=== PATIENT | female | born 1980 | race American Indian/Alaskan Native ===

== ENCOUNTER 2017-11-21 13:17 | Inpatient (IN) | payer OTHER ==
[2017-11-21] MEDS ORDERED: ZOFRAN IV ONE (15:28)
[2017-11-21] MEDS ORDERED: TORADOL IV ONE (15:28)
[2017-11-21] MEDS ORDERED: NACL 0.9% 1000 ML 1,000 ML IV ONE (15:28)
--- NOTE | 2017-11-21 15:44 | Emergency Department Report ---
Blank Doc - Documentation Documentation: Patient is a 37-year-old [place] female past medical history of diabetes who is presenting with cough cold congestion and sore throat fever body aches nausea vomiting and one episode of diarrhea starting today. Patient states symptoms started 3 days ago. Patient also states she has shortness of breath on exertion and weakness she does have a history of heavy menses and is on the last day of her menses currently and has had 3 blood transfusions in her life. Patient states she is unable to keep anything down we'll start IV IV fluids and nausea medicine and medicine for body aches. We'll check labs to ensure that she doesn't have Y abnormalities or severe anemia requiring transfusion.
--- NOTE | 2017-11-21 15:55 | Emergency Department Report ---
- General Chief Complaint: Upper Respiratory Infection Stated Complaint: DANG,CONGESTION Time Seen by Provider: 11/21/17 15:21 Source: patient Mode of arrival: Ambulatory Limitations: No Limitations - History of Present Illness Initial Comments: Patient is a 46-year-old black female who is having some right-sided flank pain. Patient states it started yesterday originally she was having bilateral discomfort but costovertebral on the right. Patient also has some nausea as well as some vaginal spotting that she states is not having enough to wear a pad. This could be hematuria as well. Patient will have laboratory studies urinalysis and a CT rule out stone ordered MD Complaint: fever, cough, sore throat, rhinorrhea, nasal congestion, sinus pain Onset/Timin -: week(s) Severity: moderate Severity scale (0 -10): 4 Quality: sharp, aching Consistency: intermittent Improves With: nothing Worsens With: activity Context: sick contacts Associated Symptoms: fever, chills, myalgias, rhinorrhea, nasal congestion, sore throat, cough, shortness of breath, nausea, vomiting, diarrhea. denies: confusion Treatments Prior to Arrival: none - Related Data Allergies Allergy/AdvReac Type Severity Reaction Status Date / Time meperidine [From Demerol] Allergy Anaphylaxis Verified 11/21/17 13:21 levofloxacin [From Levaquin] AdvReac Vomiting Verified 11/21/17 13:21 piperacillin [From Zosyn] AdvReac Vomiting Verified 11/21/17 13:21 tazobactam [From Zosyn] AdvReac Vomiting Verified 11/21/17 13:21 ED Review of Systems ROS: Stated complaint: DANG,CONGESTION Other details as noted in HPI Constitutional: chills, fever, malaise Eyes: denies: eye pain, eye discharge, vision change ENT: ear pain, throat pain, congestion Respiratory: shortness of breath. denies: cough, wheezing Cardiovascular: denies: chest pain, palpitations, paroxysmal nocturnal dyspnea Endocrine: no symptoms reported Gastrointestinal: nausea, vomiting, diarrhea. denies: abdominal pain Genitourinary: denies: urgency, dysuria, discharge Musculoskeletal: denies: back pain, joint swelling, arthralgia Skin: denies: rash, lesions Neurological: denies: headache, weakness, numbness, paresthesias, confusion, abnormal gait, vertigo Psychiatric: denies: anxiety, depression Hematological/Lymphatic: denies: easy bleeding, easy bruising ED Past Medical Hx - Past Medical History Hx Hypertension: Yes Hx Diabetes: Yes - Surgical History Hx Appendectomy: Yes Additional Surgical History: Fibroids removed - Social History Smoking Status: Never Smoker Substance Use Type: Alcohol ED Physical Exam - General Limitations: No Limitations General appearance: alert, in no apparent distress - Head Head exam: Present: atraumatic, normocephalic - Eye Eye exam: Present: normal appearance, PERRL, EOMI Pupils: Present: normal accommodation - ENT ENT exam: Present: mucous membranes moist, TM's normal bilaterally - Expanded ENT Exam Expanded Throat exam: Positive: tonsillar erythema, tonsillomegaly. Negative: tonsillar exudate, R peritonsillar mass, L peritonsillar mass - Neck Neck exam: Present: normal inspection, full ROM. Absent: tenderness, meningismus, lymphadenopathy, thyromegaly - Respiratory Respiratory exam: Present: normal lung sounds bilaterally, chest wall tenderness (right lateral chest wall tenderness ), decreased breath sounds (RLL ). Absent: respiratory distress, wheezes, rhonchi, stridor - Cardiovascular Cardiovascular Exam: Present: regular rate, normal rhythm, normal heart sounds. Absent: systolic murmur, diastolic murmur, rubs, gallop - GI/Abdominal GI/Abdominal exam: Present: soft, normal bowel sounds. Absent: distended, tenderness, guarding, rebound, rigid, organomegaly, mass, bruit, pulsatile mass , hernia - Rectal Rectal exam: Present: deferred - Extremities Exam Extremities exam: Present: normal inspection, full ROM, normal capillary refill , pedal edema. Absent: tenderness, joint swelling, calf tenderness - Back Exam Back exam: Present: normal inspection, full ROM. Absent: tenderness, CVA tenderness (R), CVA tenderness (L), muscle spasm, paraspinal tenderness, vertebral tenderness - Neurological Exam Neurological exam: Present: alert, oriented X3, CN II-XII intact, normal gait, reflexes normal - Psychiatric Psychiatric exam: Present: normal affect, normal mood - Skin Skin exam: Present: warm, dry, intact, normal color. Absent: rash ED Course Vital Signs 11/21/17 13:21 Temperature 97.5 F L Pulse Rate 103 H Respiratory 20 Rate Blood Pressure 112/54 O2 Sat by Pulse 96 Oximetry ED Medical Decision Making - Lab Data Result diagrams: 11/21/17 16:03 11/21/17 16:03 - Radiology Data Radiology results: report reviewed, image reviewed 5 EM posterior basal opacity seen on lateral aspecdt , consistent with Lower Lob infiltrate/consolidation - Medical Decision Making Patient is a 46-year-old black female who is having some right-sided flank pain. Patient states it started yesterday originally she was having bilateral discomfort but costovertebral on the right. Patient also has some nausea as well as some vaginal spotting that she states is not having enough to wear a pad. This could be hematuria as well. Patient will have laboratory studies urinalysis and a CT rule out stone ordered, exam pt appears ill , work of breathing noted, lungs decreased lung sounds RLL, right lateral chest wall tenderness to palpation, o2 sat 92 room, 86% with ambulation. cbc, ua, hcg: noted, cxr: RLL CAP, plan: admit to hospital , NS 1 liter bolus, 150 cc hr, admit to medicine dx CAP, called hospitalist Dr. Rajput recommendation VQ scan , admit to medicine Dx, CAP, RLL Pneumonia, SOB, discussed with patient, patient verbalized agreement and understanding of same, pt hand off report given to Gaurang Rajput at this time. Critical care attestation.: If time is entered above; I have spent that time in minutes in the direct care of this critically ill patient, excluding procedure time. ED Disposition Clinical Impression: SOB (shortness of breath) CAP (community acquired pneumonia) Qualifiers: Laterality: right Lung location: lower lobe of lung Qualified Code(s): J18.1 - Lobar pneumonia, unspecified organism Disposition: OP ADMIT IP TO THIS HOSP Is pt being admited?: Yes Does the pt Need Aspirin: No Condition: Stable Instructions: Bacterial Pneumonia (ED) Referrals: PRIMARY CARE, [Primary Care Provider] - 3-5 Days Time of Disposition: 18:12
[2017-11-21 16:18] LABS: Basophils # (Auto) 0.1 K/mm3 (0.0-0.1); Basophils % (Auto) 0.9 % (0.0-1.8); Eosinophils # (Auto) 0.1 K/mm3 (0.0-0.4); Eosinophils % (Auto) 0.9 % (0.0-4.3); Hematocrit 32.8 % (30.3-42.9); Hemoglobin 10.9 gm/dl (10.1-14.3); Lymphocytes # (Auto) 1.6 K/mm3 (1.2-5.4); Lymphocytes % (Auto) 19.2 % (13.4-35.0); Mean Corpuscular HGB Conc 33 % (30-34); Mean Corpuscular Hemoglobin 27 pg (28-32); Mean Corpuscular Volume 82 fl (79-97); Monocytes # (Auto) 0.8 K/mm3 (0.0-0.8); Monocytes % (Auto) 10.3 % (0.0-7.3); Platelet Count 304 K/mm3 (140-440); Red Blood Count 4.01 M/mm3 (3.65-5.03); Red Cell Distribution Width 14.7 % (13.2-15.2)
[2017-11-21 16:46] LABS: Calcium 9.6 mg/dL (8.4-10.2)
--- NOTE | 2017-11-21 17:09 | XRay Report ---
FINAL REPORT EXAM: XR CHEST ROUTINE 2V HISTORY: cough TECHNIQUE: Two views of the chest Comparison: None FINDINGS: Heart size upper limits normal. There is a left chemo port present. There is mild posterior basal lower lobe opacity seen on the lateral film only, laterality is uncertain. Left costophrenic angle is clipped on the frontal film. Imaged axial skeleton is unremarkable. IMPRESSION: Approximately 5 centimeter posterior basal opacity seen on the lateral projection only, laterality is uncertain. Finding is compatible with lower lobe infiltrate/consolidation. Chemoport. Left costophrenic angle is clipped on the frontal exam.
[2017-11-21] MEDS ORDERED: ROCEPHIN/NS 1 GM/50 ML 1 GM/50 ML BAG IV ONE (17:49)
[2017-11-21] MEDS ORDERED: PROVENTIL IH ONE (17:50)
[2017-11-21 18:38] LABS: INR 0.8 (0.87-1.13)
[2017-11-21 18:39] LABS: Partial Thromboplastin Time 20.2 Sec. (24.2-36.6)
[2017-11-21] MEDS ORDERED: cefTRIAXone 1 GM in NACL 0.9% 20 ML IV ONE (19:00)
--- NOTE | 2017-11-21 20:20 | Nuclear Medicine Report ---
FINAL REPORT PROCEDURE: NM LUNG SCAN PERF/VENT TECHNIQUE: Five mCi Tc-99m MAA was injected IV for pulmonary perfusion imaging in multiple projections. 15 millicurie xenon 133 was inhaled for pulmonary ventilation imaging in multiple projections. Injection site: RIGHT antecubital fossa. CPT 83669 HISTORY: sob, chest pain. COMPARISON: Chest x-ray today FINDINGS: Perfusion: No defects . Ventilation: No defects . IMPRESSION: Normal Examination
[2017-11-21 23:08] LABS: Bilirubin,Urine NEG (Negative); Blood,Urine LG (Negative); Color,Urine Yellow (Yellow); Mucus,Urine FEW /HPF; Nitrite,Urine NEG (Negative); Urobilinogen,Urine < 2.0 mg/dL (<2.0)
[2017-11-21 23:10] LABS: Protein,Urine >500 mg/dL (Negative)
--- NOTE | 2017-11-21 23:54 | History and Physical Report ---
History of Present Illness Date of examination: 11/21/17 Date of admission: 11/21/17 Chief complaint: Cough fever chills 1 day R Flank pain History of present illness: Patient is a 37-year-old Portuguese female past medical history of diabetes who is presenting with cough cold congestion and sore throat fever body aches nausea vomiting and one episode of diarrhea starting today. Patient states symptoms started 3 days ago. Patient also states she has shortness of breath on exertion and weakness. she does have a history of heavy menses and is on the last day of her menses currently and has had 3 blood transfusions in her life. Patient states she is unable to keep anything down. Also chest pain L sided.No SOB No palpitations Past Medical History Hx Hypertension: Yes Hx Diabetes: Yes Surgical History Hx Appendectomy: Yes Additional Surgical History: Fibroids removed Social History Smoking Status: Never Smoker Substance Use Type: Alcohol Review of Systems ROS: Stated complaint: DANG,CONGESTION Other details as noted in HPI Constitutional: chills, fever, malaise Eyes: denies: eye pain, eye discharge, vision change ENT: ear pain, throat pain, congestion Respiratory: shortness of breath. denies: cough, wheezing Cardiovascular: denies: chest pain, palpitations, paroxysmal nocturnal dyspnea Endocrine: no symptoms reported Gastrointestinal: nausea, vomiting, diarrhea. denies: abdominal pain Genitourinary: denies: urgency, dysuria, discharge Musculoskeletal: denies: back pain, joint swelling, arthralgia Skin: denies: rash, lesions Neurological: denies: headache, weakness, numbness, paresthesias, confusion, abnormal gait, vertigo Psychiatric: denies: anxiety, depression Hematological/Lymphatic: denies: easy bleeding, easy bruising Medications and Allergies Allergies Allergy/AdvReac Type Severity Reaction Status Date / Time meperidine [From Demerol] Allergy Anaphylaxis Verified 11/21/17 13:21 levofloxacin [From Levaquin] AdvReac Vomiting Verified 11/21/17 13:21 piperacillin [From Zosyn] AdvReac Vomiting Verified 11/21/17 13:21 tazobactam [From Zosyn] AdvReac Vomiting Verified 11/21/17 13:21 Exam - Constitutional Vitals: Temp Pulse Resp BP Pulse Ox 97.5 F L 80 20 112/54 96 11/21/17 13:21 11/21/17 18:10 11/21/17 18:10 11/21/17 13:21 11/21/17 13:21 General appearance: Present: no acute distress, well-nourished - EENT Eyes: Present: PERRL ENT: hearing intact, clear oral mucosa - Neck Neck: Present: supple, normal ROM - Respiratory Respiratory effort: normal Respiratory: left: rales - Cardiovascular Heart rate: 80 Rhythm: regular Heart Sounds: Present: S1 & S2. Absent: rub, click - Extremities Extremities: pulses symmetrical, No edema Peripheral Pulses: within normal limits - Abdominal General gastrointestinal: Present: soft, non-tender, non-distended, normal bowel sounds Female genitourinary: Present: normal - Integumentary Integumentary: Present: clear, warm, dry - Musculoskeletal Musculoskeletal: gait normal, strength equal bilaterally - Psychiatric Psychiatric: appropriate mood/affect, intact judgment & insight - Neurologic Neurologic: CNII-XII intact, moves all extremities - Allied Health Allied health notes reviewed: nursing, case management Results - Labs CBC & Chem 7: 11/21/17 16:03 11/21/17 16:03 Labs: Laboratory Last Values WBC 8.2 K/mm3 (4.5-11.0) 11/21/17 16:03 RBC 4.01 M/mm3 (3.65-5.03) 11/21/17 16:03 Hgb 10.9 gm/dl (10.1-14.3) 11/21/17 16:03 Hct 32.8 % (30.3-42.9) 11/21/17 16:03 MCV 82 fl (79-97) 11/21/17 16:03 MCH 27 pg (28-32) L 11/21/17 16:03 MCHC 33 % (30-34) 11/21/17 16:03 RDW 14.7 % (13.2-15.2) 11/21/17 16:03 Plt Count 304 K/mm3 (140-440) 11/21/17 16:03 Lymph % (Auto) 19.2 % (13.4-35.0) 11/21/17 16:03 [place] % (Auto) 10.3 % (0.0-7.3) H 11/21/17 16:03 Eos % (Auto) 0.9 % (0.0-4.3) 11/21/17 16:03 Baso % (Auto) 0.9 % (0.0-1.8) 11/21/17 16:03 Lymph # 1.6 K/mm3 (1.2-5.4) 11/21/17 16:03 [place] # 0.8 K/mm3 (0.0-0.8) 11/21/17 16:03 Eos # 0.1 K/mm3 (0.0-0.4) 11/21/17 16:03 Baso # 0.1 K/mm3 (0.0-0.1) 11/21/17 16:03 Seg Neutrophils % 68.7 % (40.0-70.0) 11/21/17 16:03 Seg Neutrophils # 5.6 K/mm3 (1.8-7.7) 11/21/17 16:03 PT 11.5 Sec. (12.2-14.9) L 11/21/17 18:03 INR 0.80 (0.87-1.13) L 11/21/17 18:03 APTT 20.2 Sec. (24.2-36.6) L 11/21/17 18:03 D-Dimer 218.34 ng/mlDDU (0-234) 11/21/17 18:03 Sodium 133 mmol/L (137-145) L 11/21/17 16:03 Potassium 4.5 mmol/L (3.6-5.0) 11/21/17 16:03 Chloride 90.4 mmol/L (98-107) L 11/21/17 16:03 Carbon Dioxide 24 mmol/L (22-30) 11/21/17 16:03 Anion Gap 23 mmol/L 11/21/17 16:03 BUN 23 mg/dL (7-17) H 11/21/17 16:03 Creatinine 1.7 mg/dL (0.7-1.2) H 11/21/17 16:03 Estimated GFR 41 ml/min 11/21/17 16:03 BUN/Creatinine Ratio 14 % 11/21/17 16:03 Glucose 138 mg/dL (65-100) H 11/21/17 16:03 POC Glucose 187 (70-105) H 11/21/17 15:05 Calcium 9.6 mg/dL (8.4-10.2) 11/21/17 16:03 Urine Color Yellow (Yellow) 11/21/17 22: Urine Turbidity Clear (Clear) 11/21/17 22: Urine pH 5.0 (5.0-7.0) 11/21/17 22:26 Ur Specific [place] 1.022 (1.003-1.030) 11/21/17 22:26 Urine Protein >500 mg/dL (Negative) 11/21/17 22: Urine Glucose (UA) >=500 mg/dL (Negative) 11/21/17 22: Urine Ketones Neg mg/dL (Negative) 11/21/17 22: Urine Blood Lg (Negative) 11/21/17: Urine Nitrite Neg (Negative) 11/21/17: Urine Bilirubin Neg (Negative) 11/21/17: Urine Urobilinogen < 2.0 mg/dL (<2.0) 11/21/17 22: Ur Leukocyte Esterase Neg (Negative) 11/21/17 22:26 Urine WBC (Auto) 19.0 /HPF (0.0-6.0) H 11/21/17 22: Urine RBC (Auto) 13.0 /HPF (0.0-6.0) 11/21/17 22: U Epithel Cells (Auto) 15.0 /HPF (0-13.0) H 11/21/17 22:26 Urine Mucus Few /HPF 11/21/17 22:26 Short CBC 11/21/17 Range/Units 16:03 WBC 8.2 (4.5-11.0) K/mm3 Hgb 10.9 (10.1-14.3) gm/dl Hct 32.8 (30.3-42.9) % Plt Count 304 (140-440) K/mm3 BMP 11/21/17 16:03 Sodium 133 L Potassium 4.5 Chloride 90.4 L Carbon Dioxide 24 BUN 23 H Creatinine 1.7 H Glucose 138 H Calcium 9.6 Urine 11/21/17 Range/Units 22:26 Urine Color Yellow (Yellow) Urine pH 5.0 (5.0-7.0) Ur Specific [place] 1.022 (1.003-1.030) Urine Protein >500 (Negative) mg/dL Urine Glucose (UA) >=500 (Negative) mg/dL - Imaging and Cardiology EKG: report reviewed (LLL infiltrate -Posterior opacity) Chest x-ray: report reviewed Imaging and Cardiology: V/q scan Low probaility for PE Assessment and Plan Advance Directives: Yes (Full code) VTE prophylaxis?: Chemical Plan of care discussed with patient/family: Yes - Patient Problems (1) CAP (community acquired pneumonia) Current Visit: Yes Status: Acute Qualifiers: Laterality: left Lung location: lower lobe of lung Qualified Code(s): J18.1 - Lobar pneumonia, unspecified organism Plan to address problem: Iv Rocephin and IV Zithromax (2) HTN (hypertension) Current Visit: Yes Status: Chronic Qualifiers: Hypertension type: essential hypertension Qualified Code(s): I10 - Essential (primary) hypertension Plan to address problem: Cont antihypertensives (3) T2DM (type 2 diabetes mellitus) Current Visit: Yes Status: Chronic Qualifiers: Diabetes mellitus complication status: without complication Diabetes mellitus supervisor long goods insulin use: without supervisor long goods use Qualified Code(s): E11.9 - Type 2 diabetes mellitus without complications Plan to address problem: Uncontrolled Adjust meds Check A1c (4) UTI (urinary tract infection) Current Visit: Yes Status: Acute Qualifiers: Urinary tract infection type: acute cystitis Plan to address problem: Rocephin to continue (5) Chest pain Current Visit: Yes Status: Acute Qualifiers: Chest pain type: unspecified Qualified Code(s): R07.9 - Chest pain, unspecified Plan to address problem: Atypical Lexiscan ordered (6) DVT prophylaxis Current Visit: Yes Status: Acute Plan to address problem: On lovenox
[2017-11-22] MEDS ORDERED: DULCOLAX PR PRN (00:59)
[2017-11-22] MEDS ORDERED: MILK OF MAGNESIA PO PRN (00:59)
[2017-11-22] MEDS ORDERED: TYLENOL PO PRN (00:59)
[2017-11-22] MEDS ORDERED: ULTRAM PO PRN ×2 (02:26→02:40)
[2017-11-22] MEDS: BENADRYL IV PRN ×3 (04:53→23:00)
[2017-11-22] MEDS: ZOFRAN IV PRN ×2 (04:53→16:33)
[2017-11-22] MEDS ORDERED: NORMODYNE IV PRN (05:56)
[2017-11-22] MEDS ORDERED: ZITHROMAX 500 MG in NACL 0.9% 250ML 250 ML IV SCH (07:00)
[2017-11-22] MEDS ORDERED: NOVOLOG SUB-Q SCH (07:30)
[2017-11-22] MEDS: NOVOLOG SUB-Q SCH ×6 (08:54→22:26)
[2017-11-22] MEDS: cefTRIAXone 2 GM in NACL 0.9% 20 ML IV SCH (10:01)
[2017-11-22 11:16] LABS: Hematocrit 29.9 % (30.3-42.9); Hemoglobin 9.4 gm/dl (10.1-14.3)
[2017-11-22] MEDS: PERCOCET 5/325 PO PRN (11:27)
[2017-11-22 11:32] LABS: Calcium 8.7 mg/dL (8.4-10.2)
[2017-11-22] MEDS ORDERED: NOVOLOG SUB-Q STA (12:34)
--- NOTE | 2017-11-22 12:35 | Progress Note ---
Assessment and Plan Assessment and plan: Patient is a 37-year-old [place] female past medical history of diabetes who is presenting with cough cold congestion and sore throat fever body aches nausea vomiting and one episode of diarrhea starting today. Patient states symptoms started 3 days ago. Patient also states she has shortness of breath on exertion and weakness. she does have a history of heavy menses and is on the last day of her menses currently and has had 3 blood transfusions in her life. Patient states she is unable to keep anything down. This morning the patient reports headache, ear pain back pain, stomach pain, rihnorrhea, hypthermia on admission, r/o influenza Presumed post-influenza pneumonia Hypertension Type 2 diabetes mellitus with hyperglycemia Acute cystitis DUB Atypical chest pain likely secondary to pleuritic events considering pneumonia Plan * Continue supportive care * We'll place patient on isolation start Tamiflu * Check PCR influenza and if negative will discontinue Tamiflu * Continue antibiotics * We'll give bolus of fluids * Obtain home medication list will restart * DVT GI prophylaxis * Plan of care discussed with the patient in detail History Interval history: Patient seen and examined, still lathergic, Hospitalist Physical - Physical exam Narrative exam: VITAL SIGNS: Reviewed. GENERAL: The patient appeared well nourished and normally developed. Otherwise lethargic. Vital signs as documented. HEAD: No signs of head trauma. EYES: Pupils are equal. Extraocular motions intact. EARS: Hearing grossly intact. MOUTH: Oropharynx is normal. NECK: No adenopathy, no JVD. CHEST: Chest with clear breath sounds bilaterally. No wheezes, rales, or rhonchi. CARDIAC: Regular rate and rhythm. S1 and S2, without murmurs, gallops, or rubs. VASCULAR: No Edema. Peripheral pulses normal and equal in all extremities. ABDOMEN: Soft, without detectable tenderness. No sign of distention. No rebound or guarding, and no masses palpated. Bowel Sounds normal. MUSCULOSKELETAL: Good range of motion of all major joints. Extremities without clubbing, cyanosis or edema. NEUROLOGIC EXAM: Alert and oriented x 3. No focal sensory or strength deficits. Speech normal. Follows commands. PSYCHIATRIC: Mood normal. SKIN: No rash or lesions. - Constitutional Vitals: Temp Pulse Resp BP Pulse Ox 98.2 F 86 20 183/93 98 11/22/17 07:52 11/22/17 07:52 11/22/17 07:52 11/22/17 07:52 11/22/17 07:52 General appearance: Present: no acute distress, well-nourished Results - Labs CBC & Chem 7: 11/22/17 11:02 11/22/17 11:02 Labs: Laboratory Last Values WBC 8.2 K/mm3 (4.5-11.0) 11/21/17 16:03 RBC 4.01 M/mm3 (3.65-5.03) 11/21/17 16:03 Hgb 9.4 gm/dl (10.1-14.3) L 11/22/17 11:02 Hct 29.9 % (30.3-42.9) L 11/22/17 11:02 MCV 82 fl (79-97) 11/21/17 16:03 MCH 27 pg (28-32) L 11/21/17 16:03 MCHC 33 % (30-34) 11/21/17 16:03 RDW 14.7 % (13.2-15.2) 11/21/17 16:03 Plt Count 304 K/mm3 (140-440) 11/21/17 16:03 Lymph % (Auto) 19.2 % (13.4-35.0) 11/21/17 16:03 [place] % (Auto) 10.3 % (0.0-7.3) H 11/21/17 16:03 Eos % (Auto) 0.9 % (0.0-4.3) 11/21/17 16:03 Baso % (Auto) 0.9 % (0.0-1.8) 11/21/17 16:03 Lymph # 1.6 K/mm3 (1.2-5.4) 11/21/17 16:03 [place] # 0.8 K/mm3 (0.0-0.8) 11/21/17 16:03 Eos # 0.1 K/mm3 (0.0-0.4) 11/21/17 16:03 Baso # 0.1 K/mm3 (0.0-0.1) 11/21/17 16:03 Seg Neutrophils % 68.7 % (40.0-70.0) 11/21/17 16:03 Seg Neutrophils # 5.6 K/mm3 (1.8-7.7) 11/21/17 16:03 PT 11.5 Sec. (12.2-14.9) L 11/21/17 18:03 INR 0.80 (0.87-1.13) L 11/21/17 18:03 APTT 20.2 Sec. (24.2-36.6) L 11/21/17 18:03 D-Dimer 218.34 ng/mlDDU (0-234) 11/21/17 18:03 Sodium 135 mmol/L (137-145) L 11/22/17 11:02 Potassium 4.9 mmol/L (3.6-5.0) 11/22/17 11:02 Chloride 90.5 mmol/L (98-107) L 11/22/17 11:02 Carbon Dioxide 23 mmol/L (22-30) 11/22/17 11:02 Anion Gap 26 mmol/L 11/22/17 11:02 BUN 24 mg/dL (7-17) H 11/22/17 11:02 Creatinine 1.5 mg/dL (0.7-1.2) H 11/22/17 11:02 Estimated GFR 48 ml/min 11/22/17 11:02 BUN/Creatinine Ratio 16 % 11/22/17 11:02 Glucose 541 mg/dL (65-100) H* 11/22/17 11:02 POC Glucose 451 (70-105) H 11/22/17 05:24 Calcium 8.7 mg/dL (8.4-10.2) 11/22/17 11:02 HCG, Qual Negative (Negative) 11/22/17 10:02 Urine Color Yellow (Yellow) 11/21/17 22:26 Urine Turbidity Clear (Clear) 11/21/17 22: Urine pH 5.0 (5.0-7.0) 11/21/17 22: Ur Specific [place] 1.022 (1.003-1.030) 11/21/17 22: Urine Protein >500 mg/dL (Negative) 11/21/17 22: Urine Glucose (UA) >=500 mg/dL (Negative) 11/21/17 22:26 Urine Ketones Neg mg/dL (Negative) 11/21/17 22: Urine Blood Lg (Negative) 02/15/18 22:26 Urine Nitrite Neg (Negative) 11/21/17 22:26 Urine Bilirubin Neg (Negative) 11/21/17 22:26 Urine Urobilinogen < 2.0 mg/dL (<2.0) 11/21/17 22:26 Ur Leukocyte Esterase Neg (Negative) 11/21/17 22:26 Urine WBC (Auto) 19.0 /HPF (0.0-6.0) H 11/21/17 22:26 Urine RBC (Auto) 13.0 /HPF (0.0-6.0) 11/21/17 22:26 U Epithel Cells (Auto) 15.0 /HPF (0-13.0) H 11/21/17 22:26 Urine Mucus Few /HPF 11/21/17 22:26 - Imaging and Cardiology Chest x-ray: image reviewed (left costophrenic angle blunted.)
[2017-11-22] MEDS ORDERED: NACL 0.9% 1000 ML 1,000 ML IV ONE (13:00)
[2017-11-22] MEDS: PAXIL PO SCH (13:44)
[2017-11-22] MEDS: APRESOLINE PO SCH ×2 (13:44→22:23)
[2017-11-22] MEDS: NORVASC PO SCH (13:44)
[2017-11-22] MEDS: TAMIFLU PO SCH ×2 (14:57→22:26)
[2017-11-22] MEDS ORDERED: LEVEMIR SUB-Q SCH (22:00)
[2017-11-22] MEDS: ELAVIL PO SCH (22:28)
[2017-11-22] MEDS: LEVEMIR SUB-Q SCH ×2 (22:50→22:59)
[2017-11-23] MEDS: APRESOLINE PO SCH ×3 (05:35→22:50)
[2017-11-23] MEDS ORDERED: LEXISCAN IV ONE (08:09)
[2017-11-23] MEDS: NOVOLOG SUB-Q SCH ×7 (09:47→23:03)
[2017-11-23] MEDS: TAMIFLU PO SCH ×2 (09:54→22:51)
[2017-11-23] MEDS: NORVASC PO SCH (09:55)
[2017-11-23] MEDS: cefTRIAXone 2 GM in NACL 0.9% 20 ML IV SCH (09:59)
[2017-11-23] MEDS: ZOFRAN IV PRN (10:02)
[2017-11-23] MEDS: BENADRYL IV PRN ×2 (10:17→18:55)
[2017-11-23 10:33] LABS: Creatine Kinase MB 2.3 ng/mL (0.0-4.0)
[2017-11-23] MEDS: PERCOCET 5/325 PO PRN (14:20)
[2017-11-23] MEDS: PAXIL PO SCH (14:42)
[2017-11-23] MEDS: ZITHROMAX PO SCH (14:42)
--- NOTE | 2017-11-23 17:51 | Progress Note ---
Assessment and Plan Assessment and plan: Patient is a 37-year-old [place] female past medical history of diabetes who is presenting with cough cold congestion and sore throat fever body aches nausea vomiting and one episode of diarrhea starting today. Patient states symptoms started 3 days ago. Patient also states she has shortness of breath on exertion and weakness. she does have a history of heavy menses and is on the last day of her menses currently and has had 3 blood transfusions in her life. Patient states she is unable to keep anything down. This morning the patient reports headache, ear pain back pain, stomach pain, rihnorrhea, hypthermia on admission, r/o influenza Presumed post-influenza pneumonia Hypertension Type 2 diabetes mellitus with hyperglycemia Acute cystitis YULIYA LIKELY Secondary to vasomotor nehropathy DUB Atypical chest pain likely secondary to pleuritic events considering pneumonia Plan * Continue supportive care * a1c 15- patient most definitely not compass. * We'll place patient on isolation start Tamiflu * Check PCR influenza and if negative will discontinue Tamiflu * Continue antibiotics * We'll give bolus of fluids * Obtain home medication list will restart * DVT GI prophylaxis * Plan of care discussed with the patient in detail History Interval history: Patient seen and examined, states she is improving. patient states that pain is wores at night. Hospitalist Physical - Physical exam Narrative exam: VITAL SIGNS: Reviewed. GENERAL: The patient appeared well nourished and normally developed. Otherwise lethargic. Vital signs as documented. HEAD: No signs of head trauma. EYES: Pupils are equal. Extraocular motions intact. EARS: Hearing grossly intact. MOUTH: Oropharynx is normal. NECK: No adenopathy, no JVD. CHEST: Chest with clear breath sounds bilaterally. No wheezes, rales, or rhonchi. CARDIAC: Regular rate and rhythm. S1 and S2, without murmurs, gallops, or rubs. VASCULAR: No Edema. Peripheral pulses normal and equal in all extremities. ABDOMEN: Soft, without detectable tenderness. No sign of distention. No rebound or guarding, and no masses palpated. Bowel Sounds normal. MUSCULOSKELETAL: Good range of motion of all major joints. Extremities without clubbing, cyanosis or edema. NEUROLOGIC EXAM: Alert and oriented x 3. No focal sensory or strength deficits. Speech normal. Follows commands. PSYCHIATRIC: Mood normal. SKIN: No rash or lesions. - Constitutional Vitals: Temp Pulse Resp BP Pulse Ox 98.1 F 86 19 121/98 96 11/23/17 16:24 11/23/17 16:24 11/23/17 16:24 11/23/17 16:24 11/23/17 16:24 General appearance: Present: no acute distress, well-nourished Results - Labs CBC & Chem 7: 11/22/17 11:02 11/22/17 11:02 Labs: Laboratory Last Values WBC 8.2 K/mm3 (4.5-11.0) 11/21/17 16:03 RBC 4.01 M/mm3 (3.65-5.03) 11/21/17 16:03 Hgb 9.4 gm/dl (10.1-14.3) L 11/22/17 11:02 Hct 29.9 % (30.3-42.9) L 11/22/17 11:02 MCV 82 fl (79-97) 11/21/17 16:03 MCH 27 pg (28-32) L 11/21/17 16:03 MCHC 33 % (30-34) 11/21/17 16:03 RDW 14.7 % (13.2-15.2) 11/21/17 16:03 Plt Count 304 K/mm3 (140-440) 11/21/17 16:03 Lymph % (Auto) 19.2 % (13.4-35.0) 11/21/17 16:03 [place] % (Auto) 10.3 % (0.0-7.3) H 11/21/17 16:03 Eos % (Auto) 0.9 % (0.0-4.3) 11/21/17 16:03 Baso % (Auto) 0.9 % (0.0-1.8) 11/21/17 16:03 Lymph # 1.6 K/mm3 (1.2-5.4) 11/21/17 16:03 [place] # 0.8 K/mm3 (0.0-0.8) 11/21/17 16:03 Eos # 0.1 K/mm3 (0.0-0.4) 11/21/17 16:03 Baso # 0.1 K/mm3 (0.0-0.1) 11/21/17 16:03 Seg Neutrophils % 68.7 % (40.0-70.0) 11/21/17 16:03 Seg Neutrophils # 5.6 K/mm3 (1.8-7.7) 11/21/17 16:03 PT 11.5 Sec. (12.2-14.9) L 11/21/17 18:03 INR 0.80 (0.87-1.13) L 11/21/17 18:03 APTT 20.2 Sec. (24.2-36.6) L 11/21/17 18:03 D-Dimer 218.34 ng/mlDDU (0-234) 11/21/17 18:03 Sodium 135 mmol/L (137-145) L 11/22/17 11:02 Potassium 4.9 mmol/L (3.6-5.0) 11/22/17 11:02 Chloride 90.5 mmol/L (98-107) L 11/22/17 11:02 Carbon Dioxide 23 mmol/L (22-30) 11/22/17 11:02 Anion Gap 26 mmol/L 11/22/17 11:02 BUN 24 mg/dL (7-17) H 11/22/17 11:02 Creatinine 1.5 mg/dL (0.7-1.2) H 11/22/17 11:02 Estimated GFR 48 ml/min 11/22/17 11:02 BUN/Creatinine Ratio 16 % 11/22/17 11:02 Glucose 541 mg/dL (65-100) H* 11/22/17 11:02 POC Glucose 284 (70-105) H 11/23/17 16:31 Hemoglobin A1c 15.5 % (4-6) H 11/23/17 06:59 Calcium 8.7 mg/dL (8.4-10.2) 11/22/17 11:02 Total Creatine Kinase 57 units/L (30-135) 11/23/17 06:59 CK-MB (CK-2) 2.3 ng/mL (0.0-4.0) 11/23/17 06:59 CK-MB (CK-2) Rel Index 4.0 (0-4) 11/23/17 06:59 Troponin T < 0.010 ng/mL (0.00-0.029) 11/23/17 06:59 HCG, Qual Negative (Negative) 11/22/17 10:02 Urine Color Yellow (Yellow) 11/21/17 22: Urine Turbidity Clear (Clear) 11/21/17 22: Urine pH 5.0 (5.0-7.0) 11/21/17 22: Ur Specific [place] 1.022 (1.003-1.030) 11/21/17 22: Urine Protein >500 mg/dL (Negative) 11/21/17 22: Urine Glucose (UA) >=500 mg/dL (Negative) 11/21/17 22: Urine Ketones Neg mg/dL (Negative) 11/21/17 22: Urine Blood Lg (Negative) 11/21/17 22: Urine Nitrite Neg (Negative) 11/21/17: Urine Bilirubin Neg (Negative) 11/21/17: Urine Urobilinogen < 2.0 mg/dL (<2.0) 11/21/17 22: Ur Leukocyte Esterase Neg (Negative) 11/21/17 22: Urine WBC (Auto) 19.0 /HPF (0.0-6.0) H 11/21/17 22: Urine RBC (Auto) 13.0 /HPF (0.0-6.0) 11/21/17 22: U Epithel Cells (Auto) 15.0 /HPF (0-13.0) H 11/21/17 22: Urine Mucus Few /HPF 11/21/17:
[2017-11-23] MEDS: ELAVIL PO SCH (22:50)
[2017-11-23] MEDS: LEVEMIR SUB-Q SCH (22:52)
[2017-11-24] MEDS: BENADRYL IV PRN ×2 (01:45→21:19)
[2017-11-24] MEDS: APRESOLINE PO SCH ×3 (07:01→21:27)
[2017-11-24 07:21] LABS: Hematocrit 31.1 % (30.3-42.9); Hemoglobin 9.9 gm/dl (10.1-14.3); Mean Corpuscular HGB Conc 32 % (30-34); Mean Corpuscular Hemoglobin 26 pg (28-32); Mean Corpuscular Volume 83 fl (79-97); Platelet Count 271 K/mm3 (140-440); Red Blood Count 3.74 M/mm3 (3.65-5.03); Red Cell Distribution Width 14.8 % (13.2-15.2)
[2017-11-24 07:36] LABS: BUN/Creatinine Ratio 17; Blood Urea Nitrogen 15 mg/dL (7-17); Calcium 9.2 mg/dL (8.4-10.2); Hemolysis Index 1
[2017-11-24] MEDS: PERCOCET 5/325 PO PRN (07:50)
[2017-11-24] MEDS: NOVOLOG SUB-Q SCH ×7 (08:12→23:15)
[2017-11-24] MEDS: cefTRIAXone 2 GM in NACL 0.9% 20 ML IV SCH (09:19)
[2017-11-24] MEDS: NORVASC PO SCH (09:20)
[2017-11-24] MEDS: PAXIL PO SCH (09:20)
[2017-11-24] MEDS: TAMIFLU PO SCH ×2 (09:20→21:20)
[2017-11-24] MEDS: ZITHROMAX PO SCH (09:20)
--- NOTE | 2017-11-24 14:28 | Progress Note ---
Assessment and Plan - Patient Problems (1) CAP (community acquired pneumonia) Current Visit: Yes Status: Acute Qualifiers: Laterality: left Lung location: lower lobe of lung Qualified Code(s): J18.1 - Lobar pneumonia, unspecified organism Plan to address problem: Most likely viral pneumonia. Patient responding well. Complete Tamiflu and discharge antibiotics. Should be able to go home tomorrow. (2) HTN (hypertension) Current Visit: Yes Status: Chronic Qualifiers: Hypertension type: essential hypertension Qualified Code(s): I10 - Essential (primary) hypertension Plan to address problem: Well-controlled continue present management. (3) T2DM (type 2 diabetes mellitus) Current Visit: Yes Status: Chronic Qualifiers: Diabetes mellitus complication status: without complication Diabetes mellitus lobsterman insulin use: without fci use Qualified Code(s): E11.9 - Type 2 diabetes mellitus without complications Plan to address problem: Suboptimal control increase Levemir to 25 units. History Interval history: Patient actually breathing was better today. States also feels stronger otherwise hospital course unremarkable. Mother at bedside WORSENING concerns answered to their satisfaction. Hospitalist Physical - Constitutional Vitals: Temp Pulse Resp BP Pulse Ox 98.4 F 72 18 140/70 96 11/24/17 07:44 11/24/17 13:25 11/24/17 08:25 11/24/17 13:25 11/24/17 07:44 General appearance: Present: no acute distress, well-nourished - EENT Eyes: Present: PERRL, EOM intact. Absent: scleral icterus, conjunctival injection, exopthalmos, miosis, mydriasis ENT: hearing intact, clear oral mucosa, dentition normal, no oropharyngeal erythema, no edentulous - Neck Neck: Present: supple, normal ROM. Absent: rigidity, enlarged thyroid, masses or JVD, carotid bruits - Respiratory Respiratory effort: normal Respiratory: bilateral: CTA - Cardiovascular Rhythm: regular Heart Sounds: Present: S1 & S2 - Extremities Extremities: no ischemia, pulses intact, pulses symmetrical, No edema, normal temperature, normal color Peripheral Pulses: within normal limits - Abdominal General gastrointestinal: soft, non-tender, non-distended, normal bowel sounds - Psychiatric Psychiatric: appropriate mood/affect - Neurologic Neurologic: CNII-XII intact, moves all extremities Results - Labs CBC & Chem 7: 11/24/17 06:27 11/24/17 06:27 Labs: Laboratory Last Values WBC 5.1 K/mm3 (4.5-11.0) 11/24/17 06: RBC 3.74 M/mm3 (3.65-5.03) 11/24/17 06:27 Hgb 9.9 gm/dl (10.1-14.3) L 11/24/17 06: Hct 31.1 % (30.3-42.9) 11/24/17: MCV 83 fl (79-97) 11/24/17 06: MCH 26 pg (28-32) L 11/24/17: MCHC 32 % (30-34) 11/24/17: RDW 14.8 % (13.2-15.2) 11/24/17: Plt Count 271 K/mm3 (140-440) 11/24/17 06: Lymph % (Auto) 19.2 % (13.4-35.0) 11/21/17 16:03 [place] % (Auto) 10.3 % (0.0-7.3) H 11/21/17 16:03 Eos % (Auto) 0.9 % (0.0-4.3) 11/21/17 16:03 Baso % (Auto) 0.9 % (0.0-1.8) 11/21/17 16:03 Lymph # 1.6 K/mm3 (1.2-5.4) 11/21/17 16:03 [place] # 0.8 K/mm3 (0.0-0.8) 11/21/17 16:03 Eos # 0.1 K/mm3 (0.0-0.4) 11/21/17 16:03 Baso # 0.1 K/mm3 (0.0-0.1) 11/21/17 16:03 Seg Neutrophils % 68.7 % (40.0-70.0) 11/21/17 16:03 Seg Neutrophils # 5.6 K/mm3 (1.8-7.7) 11/21/17 16:03 PT 11.5 Sec. (12.2-14.9) L 11/21/17 18:03 INR 0.80 (0.87-1.13) L 11/21/17 18:03 APTT 20.2 Sec. (24.2-36.6) L 11/21/17 18:03 D-Dimer 218.34 ng/mlDDU (0-234) 11/21/17 18:03 Sodium 137 mmol/L (137-145) 11/24/17 06:27 Potassium 4.2 mmol/L (3.6-5.0) 11/24/17 06:27 Chloride 98.0 mmol/L (98-107) 11/24/17 06:27 Carbon Dioxide 28 mmol/L (22-30) 11/24/17 06:27 Anion Gap 15 mmol/L 11/24/17 06:27 BUN 15 mg/dL (7-17) 11/24/17 06:27 Creatinine 0.9 mg/dL (0.7-1.2) 11/24/17 06:27 Estimated GFR > 60 ml/min 11/24/17 06:27 BUN/Creatinine Ratio 17 % 11/24/17 06:27 Glucose 120 mg/dL (65-100) H 11/24/17 06:27 POC Glucose 92 (70-105) 11/24/17 12:23 Hemoglobin A1c 15.5 % (4-6) H 11/23/17 06:59 Calcium 9.2 mg/dL (8.4-10.2) 11/24/17 06:27 Total Creatine Kinase 57 units/L (30-135) 11/23/17 06:59 CK-MB (CK-2) 2.3 ng/mL (0.0-4.0) 11/23/17 06:59 CK-MB (CK-2) Rel Index 4.0 (0-4) 11/23/17 06:59 Troponin T < 0.010 ng/mL (0.00-0.029) 11/23/17 06:59 HCG, Qual Negative (Negative) 11/22/17 10:02 Urine Color Yellow (Yellow) 11/21/17 22:26 Urine Turbidity Clear (Clear) 11/21/17 22:26 Urine pH 5.0 (5.0-7.0) 11/21/17 22:26 Ur Specific [place] 1.022 (1.003-1.030) 11/21/17 22:26 Urine Protein >500 mg/dL (Negative) 11/21/17: Urine Glucose (UA) >=500 mg/dL (Negative) 11/21/17: Urine Ketones Neg mg/dL (Negative) 11/21/17: Urine Blood Lg (Negative) 11/21/17: Urine Nitrite Neg (Negative) 11/21/17: Urine Bilirubin Neg (Negative) 11/21/17: Urine Urobilinogen < 2.0 mg/dL (<2.0) 11/21/17: Ur Leukocyte Esterase Neg (Negative) 11/21/17: Urine WBC (Auto) 19.0 /HPF (0.0-6.0) H 11/21/17: Urine RBC (Auto) 13.0 /HPF (0.0-6.0) 11/21/17: U Epithel Cells (Auto) 15.0 /HPF (0-13.0) H 11/21/17: Urine Mucus Few /HPF 11/21/17:
[2017-11-24] MEDS: ELAVIL PO SCH (21:20)
[2017-11-24] MEDS ORDERED: LEVEMIR SUB-Q SCH (22:00)
[2017-11-25] MEDS: PERCOCET 5/325 PO PRN (04:57)
[2017-11-25] MEDS: APRESOLINE PO SCH ×2 (05:43→14:06)
[2017-11-25] MEDS: NOVOLOG SUB-Q SCH ×6 (08:59→17:00)
[2017-11-25 09:06] VITALS: BP 168/86
[2017-11-25] MEDS: PAXIL PO SCH (09:19)
[2017-11-25] MEDS: BENADRYL IV PRN (09:19)
[2017-11-25] MEDS: ZITHROMAX PO SCH (09:20)
[2017-11-25] MEDS: TAMIFLU PO SCH (09:20)
[2017-11-25] MEDS: NORVASC PO SCH (09:21)
[2017-11-25] MEDS: cefTRIAXone 2 GM in NACL 0.9% 20 ML IV SCH (10:39)
--- NOTE | 2017-11-25 13:50 | Discharge Summary ---
Providers - Providers Date of Admission: 11/22/17 00:59 Date of discharge: 11/25/17 Attending physician: KULDIP PRINGLE None Primary care physician: DROP WIRE BUILDER Hospitalization Condition: Good Pertinent studies: Chest x-ray showed left lower lobe consolidation. Perfusion scan unremarkable. Her prob Hospital course: Patient presented with shortness of breath low-grade fever and congestion. Patient was worked up for coronary artery disease community-acquired pneumonia. After workup chest x-ray unremarkable. Low-grade fever patient was diagnosed with viral URI. Patient received Tamiflu an medic control. Patient much improved. Hospital course complicated by uncontrolled diabetes. Was thought to be secondary to short use of steroids. Will discharge with home insulin dosage. Disposition: DC-01 TO HOME OR SELFCARE - Discharge Diagnoses (1) CAP (community acquired pneumonia) Status: Acute Qualifiers: Laterality: left Lung location: lower lobe of lung Qualified Code(s): J18.1 - Lobar pneumonia, unspecified organism Comment: She received Rocephin for 3 days. Patient remains afebrile breathing much better white count normal. We'll discharge with 7 more days of azithromycin. (2) HTN (hypertension) Status: Chronic Qualifiers: Hypertension type: essential hypertension Qualified Code(s): I10 - Essential (primary) hypertension (3) T2DM (type 2 diabetes mellitus) Status: Chronic Qualifiers: Diabetes mellitus complication status: without complication Diabetes mellitus intermediate insulin use: without ad terminal makeup operator use Qualified Code(s): E11.9 - Type 2 diabetes mellitus without complications Core Measure Documentation - Palliative Care Palliative Care/ Comfort Measures: Not Applicable - Core Measures Any of the following diagnoses?: none Exam - Constitutional Vitals: Temp Pulse Resp BP Pulse Ox 98.4 F 89 18 168/86 95 11/25/17 08:15 11/25/17 08:15 11/25/17 08:15 11/25/17 09:21 11/25/17 08:15 General appearance: Present: no acute distress, well-nourished - EENT Eyes: Present: PERRL ENT: hearing intact, clear oral mucosa - Neck Neck: Present: supple, normal ROM - Respiratory Respiratory effort: normal Respiratory: left: rhonchi (minimal), bilateral: CTA - Cardiovascular Heart Sounds: Present: S1 & S2. Absent: rub, click - Extremities Extremities: pulses symmetrical, No edema Peripheral Pulses: within normal limits - Abdominal General gastrointestinal: Present: soft, non-tender, non-distended, normal bowel sounds Female genitourinary: Present: normal - Integumentary Integumentary: Present: clear, warm, dry - Musculoskeletal Musculoskeletal: gait normal, strength equal bilaterally - Psychiatric Psychiatric: appropriate mood/affect, intact judgment & insight - Neurologic Neurologic: CNII-XII intact, moves all extremities Plan Activity: advance as tolerated Weight Bearing Status: Touch Down Weight Bearing Diet: low fat Follow up with: PRIMARY CARE, [Primary Care Provider] - 3-5 Days Prescriptions: amLODIPine [Norvasc] 10 mg PO QDAY #30 tablet Azithromycin [Zithromax TAB] 500 mg PO QDAY #7 tablet Insulin Detemir [Levemir] 25 units SUB-Q QHS #7 units
== END 2017-11-25 18:14 | disposition home or self-care (01) | DRG 194 ==
LOC: ED 13:17 → 3A 11-22 00:59
PROVIDERS: ADMIT Internal Medicine; ATTEND Internal Medicine
DX: J18.9 Pneumonia, unspecified organism (principal); N30.00 Acute cystitis without hematuria; N17.9 Acute kidney failure, unspecified; I25.10 Atherosclerotic heart disease of native coronary artery without angina pectoris; R19.7 Diarrhea, unspecified; E11.65 Type 2 diabetes mellitus with hyperglycemia; M54.9 Dorsalgia, unspecified; I10 Essential (primary) hypertension; Z88.8 Allergy status to other drugs, medicaments and biological substances; Z88.1 Allergy status to other antibiotic agents; Z90.49 Acquired absence of other specified parts of digestive tract
CPT/HCPCS: 36415; 71046; 78582; 80048; 81001; 82550; 82553; 82962; 83036; 84484; 84703; 85014; 85018; 85025; 85027; 85379; 85610; 85730; 87040; 96365; 96375; 99285; A9540; A9558; J0456; J0696; J1200; J1815; J1818; J1885; J2405; J2785; J7030; J7050

== ENCOUNTER 2017-12-22 23:33 | Emergency (ER) | payer SELFPAY ==
[2017-12-22] MEDS ORDERED: ASPIRIN PO ONE (23:56)
[2017-12-23] MEDS ORDERED: ASPIRIN ONE (02:51)
[2017-12-23 03:57] LABS: Basophils # (Auto) 0.1 K/mm3 (0.0-0.1); Eosinophils # (Auto) 0.2 K/mm3 (0.0-0.4); Eosinophils % (Auto) 1.7 % (0.0-4.3); Hematocrit 32.9 % (30.3-42.9); Hemoglobin 10.6 gm/dl (10.1-14.3); Lymphocytes % (Auto) 31.2 % (13.4-35.0); Mean Corpuscular HGB Conc 32 % (30-34); Mean Corpuscular Hemoglobin 26 pg (28-32); Mean Corpuscular Volume 81 fl (79-97); Monocytes # (Auto) 0.6 K/mm3 (0.0-0.8); Monocytes % (Auto) 6.5 % (0.0-7.3); Platelet Count 347 K/mm3 (140-440); Red Blood Count 4.04 M/mm3 (3.65-5.03); Red Cell Distribution Width 14.7 % (13.2-15.2)
--- NOTE | 2017-12-23 03:57 | Emergency Department Report ---
ED General Adult HPI - General Chief complaint: Chest Pain Stated complaint: CHEST PAIN,DANG Time Seen by Provider: 12/23/17 03:44 Source: patient Mode of arrival: Ambulatory Limitations: No Limitations - History of Present Illness Initial comments: Patient states itchy all over days weeks months and years she seen a audiovisual aids technician about it they said it's allergies she denies a rash. She also has been having 2 days of chest pain with intermittent shortness of breath she denies risk factors DVT PE. She was here a month ago for similar symptoms and had pna, here w/ hx of rad and cough and sob w/ chronic pruitis, no [place] no stiff neck no rash, no exertional cp -: unknown Radiation: non-radiation Quality: burning, stabbing Consistency: intermittent Worsens with: none Associated Symptoms: denies other symptoms. denies: headaches, loss of appetite , rash, seizure, syncope - Related Data Home Medications Medication Instructions Recorded Confirmed Last Taken Amitriptyline 25 mg PO DAILY 11/22/17 11/22/17 11/22/17 Flovent 44 MCG/PUFF HFA 44 mcg INHALATION PRN PRN 11/22/17 11/22/17 11/19/17 Humalog 5 units SQ TID 11/22/17 11/22/17 11/21/17 Levemir 30 units SUB-Q QHS 11/22/17 11/22/17 11/21/17 Norvasc 10 mg PO DAILY 11/22/17 11/22/17 11/22/17 PARoxetine 20 mg PO DAILY 11/22/17 11/22/17 11/21/17 ProAir HFA Inhaler 2 inh IH BID 11/22/17 11/22/17 11/19/17 Protonix TAB 40 mg PO DAILY 11/22/17 11/22/17 11/20/17 hydrALAZINE 25 mg PO TID 11/22/17 11/22/17 11/20/17 Previous Rx's Medication Instructions Recorded Last Taken Type Acetaminophen [Acetaminophen TAB] 650 mg PO Q4H PRN tablet 11/25/17 Unknown Rx Amitriptyline [Elavil] 25 mg PO QHS tablet 11/25/17 Unknown Rx Azithromycin [Zithromax TAB] 500 mg PO QDAY #7 tablet 11/25/17 Unknown Rx Detemir (Nf) [Levemir (Nf)] 25 units SUB-Q QHS #7 units 11/25/17 Unknown Rx amLODIPine [Norvasc] 10 mg PO QDAY #30 tablet 11/25/17 Unknown Rx Allergies Allergy/AdvReac Type Severity Reaction Status Date / Time meperidine [From Demerol] Allergy Anaphylaxis Verified 11/21/17 13:21 levofloxacin [From Levaquin] AdvReac Vomiting Verified 11/21/17 13:21 piperacillin [From Zosyn] AdvReac Vomiting Verified 11/21/17 13:21 tazobactam [From Zosyn] AdvReac Vomiting Verified 11/21/17 13:21 ED Review of Systems ROS: Stated complaint: CHEST PAIN,DANG Other details as noted in HPI Comment: All other systems reviewed and negative Constitutional: denies: diaphoresis, fever, malaise Eyes: denies: eye discharge, vision change ENT: denies: dental pain, hearing loss, epistaxis Respiratory: cough, shortness of breath, SOB with exertion, wheezing. denies: orthopnea, stridor Cardiovascular: chest pain, palpitations, dyspnea on exertion. denies: orthopnea, edema, syncope, paroxysmal nocturnal dyspnea Gastrointestinal: denies: abdominal pain, nausea, vomiting, diarrhea, constipation, hematemesis, melena, hematochezia Musculoskeletal: denies: joint swelling, arthralgia Neurological: denies: headache, weakness, numbness, paresthesias, confusion, abnormal gait, vertigo ED Past Medical Hx - Past Medical History Hx Hypertension: Yes Hx Diabetes: Yes Hx of Cancer: Yes (Skin) Additional medical history: Bronchitis - Surgical History Hx Appendectomy: Yes Additional Surgical History: Fibroids removed - Social History Smoking Status: Never Smoker Substance Use Type: None - Medications Home Medications: Home Medications Medication Instructions Recorded Confirmed Last Taken Type Amitriptyline 25 mg PO DAILY 11/22/17 11/22/17 11/22/17 History Flovent 44 MCG/PUFF HFA 44 mcg INHALATION PRN PRN 11/22/17 11/22/17 11/19/17 History Humalog 5 units SQ TID 11/22/17 11/22/17 11/21/17 History Levemir 30 units SUB-Q QHS 11/22/17 11/22/17 11/21/17 History Norvasc 10 mg PO DAILY 11/22/17 11/22/17 11/22/17 History PARoxetine 20 mg PO DAILY 11/22/17 11/22/17 11/21/17 History ProAir HFA Inhaler 2 inh IH BID 11/22/17 11/22/17 11/19/17 History Protonix TAB 40 mg PO DAILY 11/22/17 11/22/17 11/20/17 History hydrALAZINE 25 mg PO TID 11/22/17 11/22/17 11/20/17 History Acetaminophen [Acetaminophen TAB] 650 mg PO Q4H PRN tablet 11/25/17 Unknown Rx Amitriptyline [Elavil] 25 mg PO QHS tablet 11/25/17 Unknown Rx Azithromycin [Zithromax TAB] 500 mg PO QDAY #7 tablet 11/25/17 Unknown Rx Detemir (Nf) [Levemir (Nf)] 25 units SUB-Q QHS #7 units 11/25/17 Unknown Rx amLODIPine [Norvasc] 10 mg PO QDAY #30 tablet 11/25/17 Unknown Rx ED Physical Exam - General Limitations: No Limitations General appearance: alert, in no apparent distress, anxious - Head Head exam: Present: atraumatic, normocephalic - Eye Eye exam: Present: normal appearance, PERRL, EOMI - ENT ENT exam: Present: normal exam, normal orophraynx, mucous membranes dry, mucous membranes moist - Neck Neck exam: Present: normal inspection. Absent: tenderness, meningismus - Respiratory Respiratory exam: Present: wheezes, rales, rhonchi, chest wall tenderness, prolonged expiratory. Absent: respiratory distress, stridor - Cardiovascular Cardiovascular Exam: Present: regular rate, normal heart sounds. Absent: rubs, gallop - GI/Abdominal GI/Abdominal exam: Present: soft. Absent: distended, tenderness, guarding, rebound, rigid, pulsatile mass - Extremities Exam Extremities exam: Present: normal inspection, normal capillary refill. Absent: pedal edema, joint swelling, calf tenderness - Back Exam Back exam: Present: normal inspection. Absent: tenderness, CVA tenderness (R), CVA tenderness (L), muscle spasm, paraspinal tenderness, vertebral tenderness, rash noted - Neurological Exam Neurological exam: Present: alert, oriented X3, CN II-XII intact. Absent: motor sensory deficit - Skin Skin exam: Absent: cyanosis, diaphoretic, erythema, urticaria, vesicles, petechiae ED Course Vital Signs 12/22/17 12/23/17 12/23/17 23:34 00:00 03:55 Temperature 98.4 F 98.4 F 98.4 F Pulse Rate 112 H 108 H 101 H Respiratory 18 18 26 H Rate Blood Pressure 150/75 150/75 Blood Pressure 178/110 [Left] O2 Sat by Pulse 99 99 100 Oximetry 12/23/17 03:56 Temperature Pulse Rate Respiratory 26 H Rate Blood Pressure Blood Pressure [Left] O2 Sat by Pulse 100 Oximetry ED Medical Decision Making - Lab Data Result diagrams: 12/22/17 03:50 12/22/17 03:50 - EKG Data When compared to previous EKG there are: no significant change Interpretation: no acute changes, nonspecific ST-T wave gabriela - Radiology Data Radiology results: report reviewed - Medical Decision Making Patient has a negative d-dimer no risks for DVT PE. Symptoms are atypical and likely related to asthma exacerbation. She also does seem to have a chronic pruritus was some mild renal insufficiency and will need family doctor to refer her to a assembler insulator she is stable for outpatient follow-up. X-rays negative by the radiologist posterior bilaterally EKG is unchanged with a negative troponin she will be discharged home in stable condition Critical care attestation.: If time is entered above; I have spent that time in minutes in the direct care of this critically ill patient, excluding procedure time. ED Disposition Clinical Impression: Reactive airway disease with acute exacerbation, Atypical chest pain Disposition: - TO HOME OR SELFCARE Is pt being admited?: No Does the pt Need Aspirin: No Condition: Stable Instructions: Chest Pain (ED), Acute Bronchitis (ED), Itchy Skin (ED), Impaired Kidney Function (ED) Additional Instructions: See her doctor in 2 days or return if new alarming symptoms Referrals: DRE ANTOINE MD [Staff Physician] - 3-5 Days Time of Disposition: 05:55
[2017-12-23] MEDS ORDERED: CLARITIN PO ONE (04:10)
[2017-12-23 04:29] LABS: Calcium 9.4 mg/dL (8.4-10.2)
--- NOTE | 2017-12-23 05:27 | XRay Report ---
FINAL REPORT PROCEDURE: XR CHEST ROUTINE 2V TECHNIQUE: PA and lateral chest radiographs were obtained. CPT 62116 HISTORY: wheezes COMPARISON: 11/21/2017 FINDINGS: Heart: Normal. Mediastinum/Vessels: There is a therapy port with reservoir in the left chest wall. Lungs/Pleural space: Normal. Bony thorax: No acute osseous abnormality. Other: IMPRESSION: There is no evidence of an acute cardiopulmonary process..
[2017-12-23 06:15] VITALS: BP 161/80
== END 2017-12-23 06:28 | disposition home or self-care (01) ==
LOC: ED 23:33
DX: J45.901 Unspecified asthma with (acute) exacerbation (principal); E11.9 Type 2 diabetes mellitus without complications; I10 Essential (primary) hypertension; C44.90 Unspecified malignant neoplasm of skin, unspecified; Z90.49 Acquired absence of other specified parts of digestive tract; Z88.8 Allergy status to other drugs, medicaments and biological substances; Z88.1 Allergy status to other antibiotic agents
CPT/HCPCS: 36415; 71046; 80048; 84484; 84703; 85025; 85379; 93005; 93010

== ENCOUNTER 2017-12-24 09:21 | Emergency (ER) | payer OTHER ==
[2017-12-24 10:00] LABS: Hematocrit 33.8 % (30.3-42.9); Hemoglobin 10.6 gm/dl (10.1-14.3); Mean Corpuscular HGB Conc 32 % (30-34); Mean Corpuscular Hemoglobin 26 pg (28-32); Mean Corpuscular Volume 83 fl (79-97); Platelet Count 344 K/mm3 (140-440); Red Blood Count 4.09 M/mm3 (3.65-5.03)
[2017-12-24 10:10] LABS: Calcium 9.4 mg/dL (8.4-10.2)
[2017-12-24] MEDS ORDERED: NACL 0.9% 1000 ML 1,000 ML IV ONE ×2 (10:21→14:00)
[2017-12-24] MEDS ORDERED: D50W (25GM) Syringe IV PRN (10:22)
[2017-12-24] MEDS ORDERED: DUONEB *Not for PRN Use IH ONE (10:28)
[2017-12-24 10:45] LABS: Alanine Aminotransferase 13 units/L (7-56); Albumin 3.5 g/dL (3.9-5)
[2017-12-24 10:47] LABS: Bilirubin,Direct < 0.2 mg/dL (0-0.2)
--- NOTE | 2017-12-24 10:48 | XRay Report ---
AP CHEST: HISTORY: chest pain AP view of the chest demonstrates a normal mediastinal and cardiac contour with clear lungs and normal bony and soft tissue structures. Left [id number] remains in good position. No change since 12/23/17. IMPRESSION: Unremarkable AP chest.
[2017-12-24] MEDS ORDERED: HumuLIN R 100 UNITS in NACL 0.9% 99 ML IV SCH (11:00)
[2017-12-24 11:24] LABS: Calcium 9.3 mg/dL (8.4-10.2)
--- NOTE | 2017-12-24 11:42 | Emergency Department Report ---
HPI - General Chief Complaint: Hyperglycemia Time Seen by Provider: 12/24/17 10:13 - HPI HPI: 37-year-old AA female presents to the emergency department with complaint of nausea, vomiting, body aches, chest pain, headache and itching. She was found to be very hyperglycemic with a blood sugar of close to 700. The patient is a known insulin-dependent diabetic and says she is compliant with her NovoLog and Levemir. However the patient was previously seen here for pruritus and had been placed on steroids as a treatment for her itching and this may have exacerbated her diabetes. She also has a history of hypertension, recurrent bronchitis. Patient says that she takes NovoLog 10 units with meals and Levemir 30 units at night. She has a primary care physician but has not seen them regarding her symptoms. She denies any vision change, slurred speech or any other neurological deficits. She denies any fever. No recent travel or sick contacts at home. ED Past Medical Hx - Past Medical History Hx Hypertension: Yes Hx Diabetes: Yes Additional medical history: Bronchitis - Surgical History Hx Appendectomy: Yes Additional Surgical History: Fibroids removed - Social History Smoking Status: Never Smoker Substance Use Type: None - Medications Home Medications: Home Medications Medication Instructions Recorded Confirmed Last Taken Type Flovent 44 MCG/PUFF HFA 44 mcg INHALATION PRN PRN 11/22/17 12/24/17 11/19/17 History Humalog 5 units SQ TID 11/22/17 12/24/17 11/21/17 History PARoxetine 20 mg PO DAILY 11/22/17 12/24/17 11/21/17 History Protonix TAB 40 mg PO DAILY 11/22/17 12/24/17 11/20/17 History hydrALAZINE 25 mg PO TID 11/22/17 12/24/17 11/20/17 History Acetaminophen [Acetaminophen TAB] 650 mg PO Q4H PRN tablet 11/25/17 12/24/17 Unknown Rx Amitriptyline [Elavil] 25 mg PO QHS tablet 11/25/17 12/24/17 Unknown Rx Detemir (Nf) [Levemir (Nf)] 25 units SUB-Q QHS #7 units 11/25/17 12/24/17 Unknown Rx amLODIPine [Norvasc] 10 mg PO QDAY #30 tablet 11/25/17 12/24/17 Unknown Rx ALBUTEROL Inhaler [ProAir HFA 2 puff IH QID PRN #1 inhalation 12/23/17 12/24/17 Unknown Rx Inhaler] Azithromycin 250 mg PO DAILY #6 tablet 12/23/17 12/24/17 Unknown Rx Prednisone 50 mg PO DAILY #6 tablet 12/23/17 12/24/17 Unknown Rx ED Review of Systems ROS: Stated complaint: HEADACHE Other details as noted in HPI Comment: All other systems reviewed and negative Constitutional: weakness. denies: chills, fever Eyes: denies: eye pain, eye discharge, vision change ENT: denies: ear pain, throat pain Respiratory: shortness of breath. denies: cough Cardiovascular: chest pain. denies: palpitations Gastrointestinal: nausea, vomiting Genitourinary: denies: urgency, dysuria, discharge Musculoskeletal: back pain, myalgia Skin: denies: rash, lesions Neurological: headache. denies: numbness, paresthesias Physical Exam - Physical Exam Vital Signs: Vital Signs 12/24/17 09:30 Temperature 98.6 F Pulse Rate 87 Respiratory 18 Rate Blood Pressure 170/89 O2 Sat by Pulse 98 Oximetry Physical Exam: GENERAL: The patient is well-developed well-nourished. HENT: Normocephalic. Atraumatic. Patient has moist mucous membranes. EYES: Extraocular motions are intact. Pupils equal reactive to light bilaterally. No nystagmus. NECK: Supple. Trachea is midline. CHEST/LUNGS: Clear to auscultation. There is no respiratory distress noted. HEART/CARDIOVASCULAR: Regular. There is no tachycardia. There is no murmur. ABDOMEN: Abdomen is soft, nontender. Patient has normal bowel sounds. There is no abdominal distention. SKIN: Skin is warm and dry. NEURO: The patient is awake, alert, and oriented. The patient is cooperative. The patient has no focal neurologic deficits. The patient has normal speech. Cranial nerves II through XII grossly intact. MUSCULOSKELETAL: There is no tenderness or deformity. There is no evidence of acute injury. ED Course Vital Signs 12/24/17 09:30 Temperature 98.6 F Pulse Rate 87 Respiratory 18 Rate Blood Pressure 170/89 O2 Sat by Pulse 98 Oximetry ED Medical Decision Making - Lab Data Result diagrams: 12/24/17 09:38 12/24/17 14:30 - EKG Data -: EKG Interpreted by Me EKG shows normal: sinus rhythm, axis (right axis deviation), intervals, QRS complexes (left posterior fascicular block, Q waves to the septal leads), ST-T waves Rate: tachycardia (103 bpm) - EKG Data When compared to previous EKG there are: previous EKG unavailable Interpretation: other (sinus tachycardia, right axis deviation, left posterior fascicular block) - Radiology Data Radiology results: image reviewed interpreted by me: Chest x-ray does not show any acute process. There are no pleural effusions, obvious pneumonia and there is no pneumothorax. - Medical Decision Making The patient presents with multiple complaints and was found to have very elevated serum glucose. No venous acidodis. There is a slight elevation in the anion gap. I believe the sudden hyperglycemia may be secondary to her recent steroids. She was started on an insulin gtt and given IVF. EKG does not show any STEMI. Chest Xray does not show any acute process. The rest of her labs show a mild renal insufficiency and elevated phosphorus level. Given a breathing treatment for some mild wheezing. Her labs appear more consistent with an HHNK than DKA but she will be started on the insulin gtt and my plan will be to admit the patient to the hospital for further evaluation and treatment. The patient has been presented to Dr Rosenthal for possible admission. - Differential Diagnosis DKA, HHNK, CA, Asthma, Pneumonia Critical Care Time: No Critical care attestation.: If time is entered above; I have spent that time in minutes in the direct care of this critically ill patient, excluding procedure time. ED Disposition Clinical Impression: Bronchospasm, HHNC (hyperglycemic hyperosmolar nonketotic coma) HTN (hypertension) Qualifiers: Hypertension type: essential hypertension Qualified Code(s): I10 - Essential ( primary) hypertension Chest pain Qualifiers: Chest pain type: unspecified Qualified Code(s): R07.9 - Chest pain, unspecified Disposition: OP ADMIT IP TO THIS HOSP Is pt being admited?: Yes Condition: Stable Instructions: Hypertension (ED), Diabetes Mellitus Type 2 in Adults (ED), Chest Pain (ED) Referrals: PRIMARY CARE,MD [Primary Care Provider] - 3-5 Days Time of Disposition: 15:11
[2017-12-24] MEDS ORDERED: MORPHINE IV ONE (11:57)
[2017-12-24] MEDS ORDERED: BENADRYL IV ONE (11:57)
--- NOTE | 2017-12-24 11:58 | History and Physical Report ---
History of Present Illness Chief complaint: my blood sugar is high History of present illness: 37 YO Female with DM, HTN, Bronchitis presents to ED for evaluation. Pt states that she has experienced high serum glucose levels while taking her home dose of steroids. Pt also complains of nausea, vomiting, body aches, chest discomfort. Pt also acknowledges polyuria, polydipsia. Pt seen and evaluated in ED and found to have elevated serum glucose. Pt denies fever, chills, CP, Palpitations, NVD,syncope, leg swelling, calf pain, prolonged travel/immobility , individual/family history of DVT/PE, trauma, productive cough, or recent ill contacts. Pt seen and evaluated in ED and found to have elevated serum glucose. Pt initiated on insulin therapy with normalization of serum glucose. Pt discharged home and instructed to f/u pcp 3 days. Past History Past Medical History: diabetes, hypertension Past Surgical History: appendectomy, Other (fibroid surgery,) Social history: single. denies: smoking, alcohol abuse, prescription drug abuse Family history: diabetes, hypertension Medications and Allergies Allergies Allergy/AdvReac Type Severity Reaction Status Date / Time meperidine [From Demerol] Allergy Anaphylaxis Verified 11/21/17 13:21 levofloxacin [From Levaquin] AdvReac Vomiting Verified 11/21/17 13:21 piperacillin [From Zosyn] AdvReac Vomiting Verified 11/21/17 13:21 tazobactam [From Zosyn] AdvReac Vomiting Verified 11/21/17 13:21 Home Medications Medication Instructions Recorded Confirmed Last Taken Type Flovent 44 MCG/PUFF HFA 44 mcg INHALATION PRN PRN 11/22/17 12/24/17 11/19/17 History Humalog 5 units SQ TID 11/22/17 12/24/17 11/21/17 History PARoxetine 20 mg PO DAILY 11/22/17 12/24/17 11/21/17 History Protonix TAB 40 mg PO DAILY 11/22/17 12/24/17 11/20/17 History hydrALAZINE 25 mg PO TID 11/22/17 12/24/17 11/20/17 History Acetaminophen [Acetaminophen TAB] 650 mg PO Q4H PRN tablet 11/25/17 12/24/17 Unknown Rx Amitriptyline [Elavil] 25 mg PO QHS tablet 11/25/17 12/24/17 Unknown Rx Detemir (Nf) [Levemir (Nf)] 25 units SUB-Q QHS #7 units 11/25/17 12/24/17 Unknown Rx amLODIPine [Norvasc] 10 mg PO QDAY #30 tablet 11/25/17 12/24/17 Unknown Rx ALBUTEROL Inhaler [ProAir HFA 2 puff IH QID PRN #1 inhalation 12/23/17 12/24/17 Unknown Rx Inhaler] Azithromycin 250 mg PO DAILY #6 tablet 12/23/17 12/24/17 Unknown Rx Prednisone 50 mg PO DAILY #6 tablet 12/23/17 12/24/17 Unknown Rx Active Meds: Active Medications Dextrose (D50w (25gm) Syringe) 0 ml IV PRN PRN PRN Reason: Hypoglycemia Insulin Human Regular 100 (units/ Sodium Chloride) 100 mls @ 5 mls/hr IV TITR JESSICA; Protocol Review of Systems Constitutional: no weight loss, no weight gain, no fever, no chills Ears, nose, mouth and throat: no ear pain, no ear discharge, no tinnitis, no decreased hearing, no nose pain Cardiovascular: no chest pain, no orthopnea, no palpitations, no rapid/ irregular heart beat, no edema, no syncope, no lightheadedness, no shortness of breath Respiratory: no cough, no cough with sputum, no excessive sputum, no hemoptysis , no shortness of breath Gastrointestinal: nausea, vomiting, no abdominal pain, no diarrhea, no constipation, no change in bowel habits, no hematemesis Genitourinary Female: no pelvic pain, no flank pain, no menorrhagia, no dysuria , no urinary frequency, no urgency Rectal: no pain, no incontinence, no bleeding Musculoskeletal: no neck stiffness, no neck pain, no shooting arm pain, no arm numbness/tingling, no low back pain, no shooting leg pain, no leg numbness/ tingling Integumentary: no rash, no pruritis, no redness, no sores, no wounds, no jaundice, no boils Neurological: no head injury, no transient paralysis, no paralysis, no weakness , no parathesias, no numbness, no tingling, no seizures, no syncope Psychiatric: no anxiety, no memory loss, no change in sleep habits, no sleep disturbances, no insomnia, no hypersomnia, no change in appetite, no change in libido, no suicidal ideation Endocrine: excessive thirst, polydipsia, polyuria, no cold intolerance, no heat intolerance, no nocturia, no excessive sweating, no flushing, no weight change Hematologic/Lymphatic: no easy bruising, no easy bleeding, no lymphadenopathy, no lymphedema Allergic/Immunologic: no urticaria, no allergic rhinitis, no wheezing, no persistent infections, no anaphylaxis Exam - Constitutional Vitals: Temp Pulse Resp BP Pulse Ox 98.6 F 87 18 170/89 98 12/24/17 09:30 12/24/17 09:30 12/24/17 09:30 12/24/17 09:30 12/24/17 09:30 General appearance: Present: no acute distress - EENT Eyes: Present: PERRL ENT: hearing intact, clear oral mucosa - Neck Neck: Present: supple, normal ROM - Respiratory Respiratory effort: normal Respiratory: bilateral: CTA - Cardiovascular Heart Sounds: Present: S1 & S2. Absent: rub, click - Extremities Extremities: pulses symmetrical, No edema Peripheral Pulses: within normal limits - Abdominal General gastrointestinal: Present: soft, non-tender, non-distended, normal bowel sounds Female genitourinary: Present: normal - Integumentary Integumentary: Present: clear, warm, dry - Musculoskeletal Musculoskeletal: gait normal, strength equal bilaterally - Psychiatric Psychiatric: appropriate mood/affect, intact judgment & insight - Neurologic Neurologic: CNII-XII intact, moves all extremities Results - Labs CBC & Chem 7: 12/24/17 09:38 12/24/17 16:55 Labs: Abnormal lab results 12/24/17 12/24/17 12/24/17 Range/Units 09:33 09:38 09:38 MCH 26 L (28-32) pg Sodium 125 L D (137-145) mmol/L Potassium 5.4 H D (3.6-5.0) mmol/L Chloride 87.0 L (98-107) mmol/L Carbon Dioxide 21 L (22-30) mmol/L BUN 33 H (7-17) mg/dL Creatinine 1.4 H (0.7-1.2) mg/dL Glucose 705 H* (65-100) mg/dL POC Glucose > 500 H (70-105) Phosphorus (2.5-4.5) mg/dL Alkaline Phosphatase (35-129) units/L Albumin (3.9-5) g/dL 12/24/17 12/24/17 Range/Units 09:38 11:03 MCH (28-32) pg Sodium 127 L (137-145) mmol/L Potassium 5.1 H (3.6-5.0) mmol/L Chloride 88.6 L (98-107) mmol/L Carbon Dioxide (22-30) mmol/L BUN 33 H (7-17) mg/dL Creatinine 1.3 H (0.7-1.2) mg/dL Glucose 684 H* (65-100) mg/dL POC Glucose (70-105) Phosphorus 4.60 H (2.5-4.5) mg/dL Alkaline Phosphatase 147 H (35-129) units/L Albumin 3.5 L (3.9-5) g/dL Assessment and Plan - Patient Problems (1) Diabetes Current Visit: Yes Status: Acute Plan to address problem: Insulin therapy, carbohydrate counting, f/u pcp 3 days,
[2017-12-24] MEDS ORDERED: NACL 0.9% 1000 ML 2,000 ML IV ONE (11:59)
[2017-12-24 13:15] LABS: Calcium 9.1 mg/dL (8.4-10.2)
[2017-12-24 14:13] LABS: Band Neutrophils # (Manual) 0.2 K/mm3; Total Cells Counted 100
[2017-12-24 14:14] LABS: Basophils % (Manual) 0 % (0.0-1.8); Eosinophils % (Manual) 0 % (0.0-4.3); RBC Morphology Normal
[2017-12-24 14:57] LABS: Calcium 8.8 mg/dL (8.4-10.2)
[2017-12-24] MEDS ORDERED: HumuLIN R IV ONE (16:32)
[2017-12-24 17:31] LABS: BUN/Creatinine Ratio 23; Blood Urea Nitrogen 27 mg/dL (7-17); Calcium 8.5 mg/dL (8.4-10.2); Hemolysis Index 7
[2017-12-24] MEDS ORDERED: NACL 0.9% 1000 ML 1,000 ML ONE (17:38)
[2017-12-24] MEDS ORDERED: SODIUM BICARBONATE IV ONE (18:31)
[2017-12-24 20:03] VITALS: BP 167/89
[2017-12-24] MEDS ORDERED: FLUSH HEPARIN IV ONE ×2 (20:46→21:17)
== END 2017-12-24 20:54 | disposition admitted as inpatient to this hospital (09) ==
LOC: ED 09:21
DX: J98.01 Acute bronchospasm (principal); E11.01 Type 2 diabetes mellitus with hyperosmolarity with coma; I10 Essential (primary) hypertension; R07.9 Chest pain, unspecified; Z98.890 Other specified postprocedural states
CPT/HCPCS: 36415; 71045; 80048; 80074; 82805; 82962; 83735; 83930; 84100; 84484; 84703; 85007; 85025; 93005; 93010; 96361; 96365; 96366; 96375; 99284; J1200; J1642; J2270; J7030; J1815

== ENCOUNTER 2018-01-04 23:22 | Emergency (ER) | payer SELFPAY ==
[2018-01-05] MEDS ORDERED: PERCOCET 5/325 PO ONE (01:05)
[2018-01-05 01:08] LABS: Basophils % (Auto) 0.5 % (0.0-1.8); Eosinophils # (Auto) 0.1 K/mm3 (0.0-0.4); Eosinophils % (Auto) 1.1 % (0.0-4.3); Hematocrit 31.7 % (30.3-42.9); Hemoglobin 10.2 gm/dl (10.1-14.3); Lymphocytes # (Auto) 3.6 K/mm3 (1.2-5.4); Lymphocytes % (Auto) 33.5 % (13.4-35.0); Mean Corpuscular HGB Conc 32 % (30-34); Mean Corpuscular Hemoglobin 26 pg (28-32); Mean Corpuscular Volume 82 fl (79-97); Monocytes # (Auto) 0.8 K/mm3 (0.0-0.8); Monocytes % (Auto) 7.5 % (0.0-7.3); Platelet Count 355 K/mm3 (140-440); Red Blood Count 3.87 M/mm3 (3.65-5.03); Red Cell Distribution Width 15.3 % (13.2-15.2)
--- NOTE | 2018-01-05 01:18 | Emergency Department Report ---
HPI - General Chief Complaint: Hypoglycemia Time Seen by Provider: 01/05/18 00:59 - HPI HPI: Room 23 The patient is a 37-year-old female presenting with chief complaint of scalp abscess. The patient states she is no swelling to the back of her hairline on the right occipital region for the past 6 days. He states pain began tonight. Patient denies any preceding trauma. Patient denies any history of fever. The patient states her pain has been constant. The patient gives her pain is scored 10/10. The patient states the pain feels consistent with her previous abscesses she's had in the past Location: [See above] Duration: [See above] Quality: Pain Severity:1010 Modifying factors: [see above] Context: [see above] Mode of transportation: [not driving] ED Past Medical Hx - Past Medical History Hx Hypertension: Yes Hx Diabetes: Yes Additional medical history: Bronchitis - Surgical History Hx Appendectomy: Yes Additional Surgical History: Fibroids removed - Family History Family history: no significant - Social History Smoking Status: Never Smoker Substance Use Type: None (denies illicit drug use), Alcohol (occasional) - Medications Home Medications: Home Medications Medication Instructions Recorded Confirmed Last Taken Type Flovent 44 MCG/PUFF HFA 44 mcg INHALATION PRN PRN 11/22/17 12/24/17 11/19/17 History Humalog 5 units SQ TID 11/22/17 12/24/17 11/21/17 History PARoxetine 20 mg PO DAILY 11/22/17 12/24/17 11/21/17 History Protonix TAB 40 mg PO DAILY 11/22/17 12/24/17 11/20/17 History hydrALAZINE 25 mg PO TID 11/22/17 12/24/17 11/20/17 History Acetaminophen [Acetaminophen TAB] 650 mg PO Q4H PRN tablet 11/25/17 12/24/17 Unknown Rx Amitriptyline [Elavil] 25 mg PO QHS tablet 11/25/17 12/24/17 Unknown Rx Detemir (Nf) [Levemir (Nf)] 25 units SUB-Q QHS #7 units 11/25/17 12/24/17 Unknown Rx amLODIPine [Norvasc] 10 mg PO QDAY #30 tablet 11/25/17 12/24/17 Unknown Rx ALBUTEROL Inhaler [ProAir HFA 2 puff IH QID PRN #1 inhalation 12/23/17 12/24/17 Unknown Rx Inhaler] Azithromycin 250 mg PO DAILY #6 tablet 12/23/17 12/24/17 Unknown Rx Prednisone 50 mg PO DAILY #6 tablet 12/23/17 12/24/17 Unknown Rx Sulfamethoxazole/Trimethoprim 1 each PO BID #20 tablet 01/05/18 Unknown Rx [Bactrim DS TAB] oxyCODONE /ACETAMINOPHEN [Percocet 1 - 2 tab PO Q6HR PRN #10 tablet 01/05/18 Unknown Rx 5/325] ED Review of Systems ROS: Stated complaint: HEADACHE,NECK PAIN,EARACHE Other details as noted in HPI Constitutional: denies: fever Skin: lesions Physical Exam - Physical Exam Vital Signs: Vital Signs 01/05/18 01/05/18 00:19 00:58 Temperature 98.3 F 98.6 F Pulse Rate 105 H 92 H Respiratory 18 20 Rate Blood Pressure 160/88 Blood Pressure 172/65 [Right] O2 Sat by Pulse 98 100 Oximetry Physical Exam: GENERAL: The patient is well-developed well-nourished female lying on stretcher not appearing to be in acute distress. [] HEENT: Normocephalic. Atraumatic. Extraocular motions are intact. Patient has moist mucous membranes. Approximately a 3 cm x 3 cm region of fluctuance along the right occipital region within the hairline. NECK: Supple. No meningitic signs are noted. There is no adenopathy noted. CHEST/LUNGS: There is no respiratory distress noted. HEART/CARDIOVASCULAR: Regular. There is no tachycardia. There is no gallop rub or murmur. ABDOMEN: There is no abdominal distention. SKIN: See HEENT above. There is no diaphoresis. NEURO: The patient is awake, alert, and oriented. The patient is cooperative.The patient has normal speech MUSCULOSKELETAL: There is no evidence of acute injury. ED Course Vital Signs 01/05/18 01/05/18 00:19 00:58 Temperature 98.3 F 98.6 F Pulse Rate 105 H 92 H Respiratory 18 20 Rate Blood Pressure 160/88 Blood Pressure 172/65 [Right] O2 Sat by Pulse 98 100 Oximetry - I & D Right Posterior Head Type of Procedure: Simple Site: right occipital scalp Blade Size: 11 I & D Procedure: betadine prep, sterile dressing applied, gauze wick placed Progress: Approximately 0.25 mL purulent discharge expressed after approximately 5 mm incision made with 11 blade. Wound was packed with quarter-inch iodoform gauze. Patient tolerated well. Culture sent ED Medical Decision Making - Lab Data Result diagrams: 01/05/18 00:39 01/05/18 00:39 - Differential Diagnosis dermal abscess Critical care attestation.: If time is entered above; I have spent that time in minutes in the direct care of this critically ill patient, excluding procedure time. ED Disposition Clinical Impression: Scalp abscess Disposition: TO HOME OR SELFCARE Is pt being admited?: No Does the pt Need Aspirin: No Condition: Stable Instructions: Abscess (ED) Additional Instructions: Return to the emergency department or follow up with your primary physician in 48 hours for reevaluation of your abscess. Return to the emergency department immediately should you develop worsening symptoms, fever, inability to tolerate food or liquid or any other concerns. Prescriptions: oxyCODONE /ACETAMINOPHEN [Percocet 5/325] 1 - 2 tab PO Q6HR PRN #10 tablet PRN Reason: Pain Sulfamethoxazole/Trimethoprim [Bactrim DS TAB] 1 each PO BID #20 tablet Referrals: DRE ANTOINE MD [Primary Care Provider] - 3-5 Days TAWANA OWEN MD [Staff Physician] - 3-5 Days Time of Disposition: 03:30
[2018-01-05] MEDS ORDERED: NACL 0.9% 500 ML IR ONE (01:40)
[2018-01-05] MEDS ORDERED: XYLOCAINE 1%/ EPI 1:100,000 INFILTRATI ONE ×3 (01:41→02:12)
[2018-01-05] MEDS ORDERED: NACL 0.9% IR ONE ×2 (01:49→03:15)
[2018-01-05 04:07] VITALS: BP 160/75
== END 2018-01-05 04:08 | disposition home or self-care (01) ==
LOC: ED 23:22
DX: L02.811 Cutaneous abscess of head [any part, except face] (principal); I10 Essential (primary) hypertension; E11.9 Type 2 diabetes mellitus without complications; Z90.49 Acquired absence of other specified parts of digestive tract; Z88.1 Allergy status to other antibiotic agents; Z88.8 Allergy status to other drugs, medicaments and biological substances
CPT/HCPCS: 36415; 80048; 82962; 84703; 85025; 87116

== ENCOUNTER 2018-01-07 08:48 | Emergency (ER) | payer SELFPAY ==
--- NOTE | 2018-01-07 11:42 | Emergency Department Report ---
- General Chief Complaint: Laceration/Recheck/Suture Stated Complaint: PACKING REMOVAL Time Seen by Provider: 01/07/18 11:19 Source: patient Mode of arrival: Ambulatory Limitations: No Limitations - History of Present Illness Initial Comments: 37-year-old -[place] female past medical history of hypertension diabetes comes in today for wound recheck. Patient is here on 01/05/2018 and had an abscess to the back right of her head. Patient reports she has been taking her Bactrim as prescribed. Patient denies any fever nausea and vomiting. She denies any drainage bleeding from the site. She reports that she is out of her Percocet. Patient reports she has not changed the dressing. Still having pain. -: days(s) (3) Location: scalp - Related Data Home Medications Medication Instructions Recorded Confirmed Last Taken Flovent 44 MCG/PUFF HFA 44 mcg INHALATION PRN PRN 11/22/17 12/24/17 11/19/17 Humalog 5 units SQ TID 11/22/17 12/24/17 11/21/17 PARoxetine 20 mg PO DAILY 11/22/17 12/24/17 11/21/17 Protonix TAB 40 mg PO DAILY 11/22/17 12/24/17 11/20/17 hydrALAZINE 25 mg PO TID 11/22/17 12/24/17 11/20/17 Previous Rx's Medication Instructions Recorded Last Taken Type Acetaminophen [Acetaminophen TAB] 650 mg PO Q4H PRN tablet 11/25/17 Unknown Rx Amitriptyline [Elavil] 25 mg PO QHS tablet 11/25/17 Unknown Rx Detemir (Nf) [Levemir (Nf)] 25 units SUB-Q QHS #7 units 11/25/17 Unknown Rx amLODIPine [Norvasc] 10 mg PO QDAY #30 tablet 11/25/17 Unknown Rx ALBUTEROL Inhaler [ProAir HFA 2 puff IH QID PRN #1 inhalation 12/23/17 Unknown Rx Inhaler] Azithromycin 250 mg PO DAILY #6 tablet 12/23/17 Unknown Rx Prednisone 50 mg PO DAILY #6 tablet 12/23/17 Unknown Rx Sulfamethoxazole/Trimethoprim 1 each PO BID #20 tablet 01/05/18 Unknown Rx [Bactrim DS TAB] oxyCODONE /ACETAMINOPHEN [Percocet 1 - 2 tab PO Q6HR PRN #10 tablet 01/05/18 Unknown Rx 5/325] Ibuprofen [Motrin 800 MG tab] 800 mg PO Q8H PRN #30 tablet 01/07/18 Unknown Rx Allergies Allergy/AdvReac Type Severity Reaction Status Date / Time meperidine [From Demerol] Allergy Anaphylaxis Verified 11/21/17 13:21 levofloxacin [From Levaquin] AdvReac Vomiting Verified 11/21/17 13:21 piperacillin [From Zosyn] AdvReac Vomiting Verified 11/21/17 13:21 tazobactam [From Zosyn] AdvReac Vomiting Verified 11/21/17 13:21 ED Review of Systems ROS: Stated complaint: PACKING REMOVAL Other details as noted in HPI Constitutional: denies: chills, fever Eyes: denies: eye pain, eye discharge, vision change ENT: denies: ear pain, throat pain Respiratory: denies: cough, shortness of breath, wheezing Cardiovascular: denies: chest pain, palpitations Endocrine: no symptoms reported Gastrointestinal: denies: abdominal pain, nausea, diarrhea Genitourinary: denies: urgency, dysuria, discharge Musculoskeletal: denies: back pain, joint swelling, arthralgia Skin: lesions (back of head) Neurological: denies: headache, weakness, paresthesias Psychiatric: denies: anxiety, depression Hematological/Lymphatic: denies: easy bleeding, easy bruising ED Past Medical Hx - Past Medical History Previous Medical History?: Yes Hx Hypertension: Yes Hx Diabetes: Yes Additional medical history: Bronchitis - Surgical History Past Surgical History?: Yes Hx Appendectomy: Yes Additional Surgical History: Fibroids removed - Social History Smoking Status: Never Smoker Substance Use Type: Alcohol - Medications Home Medications: Home Medications Medication Instructions Recorded Confirmed Last Taken Type Flovent 44 MCG/PUFF HFA 44 mcg INHALATION PRN PRN 11/22/17 12/24/17 11/19/17 History Humalog 5 units SQ TID 11/22/17 12/24/17 11/21/17 History PARoxetine 20 mg PO DAILY 11/22/17 12/24/17 11/21/17 History Protonix TAB 40 mg PO DAILY 11/22/17 12/24/17 11/20/17 History hydrALAZINE 25 mg PO TID 11/22/17 12/24/17 11/20/17 History Acetaminophen [Acetaminophen TAB] 650 mg PO Q4H PRN tablet 11/25/17 12/24/17 Unknown Rx Amitriptyline [Elavil] 25 mg PO QHS tablet 11/25/17 12/24/17 Unknown Rx Detemir (Nf) [Levemir (Nf)] 25 units SUB-Q QHS #7 units 11/25/17 12/24/17 Unknown Rx amLODIPine [Norvasc] 10 mg PO QDAY #30 tablet 11/25/17 12/24/17 Unknown Rx ALBUTEROL Inhaler [ProAir HFA 2 puff IH QID PRN #1 inhalation 12/23/17 12/24/17 Unknown Rx Inhaler] Azithromycin 250 mg PO DAILY #6 tablet 12/23/17 12/24/17 Unknown Rx Prednisone 50 mg PO DAILY #6 tablet 12/23/17 12/24/17 Unknown Rx Sulfamethoxazole/Trimethoprim 1 each PO BID #20 tablet 01/05/18 Unknown Rx [Bactrim DS TAB] oxyCODONE /ACETAMINOPHEN [Percocet 1 - 2 tab PO Q6HR PRN #10 tablet 01/05/18 Unknown Rx 5/325] Ibuprofen [Motrin 800 MG tab] 800 mg PO Q8H PRN #30 tablet 01/07/18 Unknown Rx ED Physical Exam - General Limitations: No Limitations General appearance: alert, in no apparent distress - Head Head exam: Present: atraumatic, normocephalic, other (right posterior occipital region near the hairline of the right side patient has dressings in place over an abscess., Abscess is no drainage when taken the bandage off. Mild tenderness. Only able to put portion of the Q-tip for 1 cm deep good granulation no purulent discharge not bleeding) - Eye Eye exam: Present: normal appearance - ENT ENT exam: Present: mucous membranes moist - Neck Neck exam: Present: normal inspection. Absent: lymphadenopathy - Respiratory Respiratory exam: Present: normal lung sounds bilaterally. Absent: respiratory distress - Cardiovascular Cardiovascular Exam: Present: regular rate, normal rhythm. Absent: systolic murmur, diastolic murmur, rubs, gallop - Extremities Exam Extremities exam: Present: normal inspection - Neurological Exam Neurological exam: Present: alert, oriented X3 - Psychiatric Psychiatric exam: Present: normal affect, normal mood ED Course Vital Signs 04/03/18 09:36 Temperature 98.7 F Pulse Rate 98 H Respiratory 20 Rate Blood Pressure 97/50 O2 Sat by Pulse 98 Oximetry ED Medical Decision Making - Medical Decision Making Patient's been evaluated by this provider fast track. Patient had approximately 2 cm of packing which was able to room removed. Site appears to be clean no purulent discharge granulated tissue 1.5 cm depth. Dressing change did not repack. Discussed the patient's continue with antibiotics as prescribed prescription for ibuprofen will be prescribed. Discussed the patient to change dressing daily follow-up the primary care provider I will list one below. Patient verbalized understanding. Critical care attestation.: If time is entered above; I have spent that time in minutes in the direct care of this critically ill patient, excluding procedure time. ED Disposition Clinical Impression: Encounter for wound re-check Disposition: TO HOME OR SELFCARE Is pt being admited?: No Does the pt Need Aspirin: No Condition: Stable Additional Instructions: Please continue with antibiotics and pain medication. Please follow-up with [facility] for evaluation and management of your chronic disease management. Prescriptions: Ibuprofen [Motrin 800 MG tab] 800 mg PO Q8H PRN #30 tablet PRN Reason: Pain Referrals: DRE ANTOINE MD [Primary Care Provider] - 3-5 Days [facility] [Provider Group] - 3-5 Days Forms: Work/School Release Form(ED)
[2018-01-07] MEDS ORDERED: MOTRIN PO ONE (12:28)
[2018-01-07 12:50] VITALS: BP 137/73
== END 2018-01-07 12:51 | disposition home or self-care (01) ==
LOC: ED 08:48
DX: Z48.00 Encounter for change or removal of nonsurgical wound dressing (principal); I10 Essential (primary) hypertension; E11.9 Type 2 diabetes mellitus without complications; Z88.1 Allergy status to other antibiotic agents; Z88.8 Allergy status to other drugs, medicaments and biological substances; Z79.4 Long term (current) use of insulin
CPT/HCPCS: 99282